=== PATIENT | male | born 1955 | race Hispanic/Latino ===

== ENCOUNTER → 2021-02-26 | Outpatient (CLI) | payer OTHER ==
[~2021-02-26] MED LIST: ALBUMIN (HUMAN) 25% 200 ML IV SCH; Aspirin PO; CEPH500B PO; TRAM50TA4 PO; TYL3 PO
[2021-02-26 11:37] LABS: BASOPHILS % (AUTO) 0.6 % (0.0-5.0); EOSINOPHILS % (AUTO) 2.4 % (0.0-8.0); HEMATOCRIT 41.9 % (42-54); LYMPHOCYTES % (AUTO) 23.7 % (21.0-51.0); MEAN CORPUSCULAR HEMOGLOBIN 36.5 pg (27.0-33.0); MEAN CORPUSCULAR HGB CONC 35.8 g/dL (32.0-36.0); MEAN CORPUSCULAR VOLUME 101.9 fL (79-99); MONOCYTES % (AUTO) 10.7 % (3.0-13.0); NEUTROPHILS % (AUTO) 62.3 % (40.0-77.0); PLATELET COUNT (AUTO) 196 K/uL (130-400); RED BLOOD CELL COUNT(AUTO) 4.11 MIL/uL (4.50-6.20); WHITE BLOOD COUNT (AUTO) 7.9 K/uL (4.8-10.8)
[2021-02-26 11:54] LABS: INR 1.21 (0.85-1.15)
[2021-02-26 12:01] LABS: ALBUMIN 2.5 g/dL (3.5-5.0); BILIRUBIN,TOTAL 4.2 mg/dL (0.2-1.0); CREATININE 0.7 mg/dL (0.5-1.5); POTASSIUM 3.7 mmol/L (3.5-5.1); TOTAL PROTEIN, SERUM 6.5 g/dL (6.0-8.3)
[2021-02-26 13:59] LABS: APPEARANCE BODY FLUID CLOUDY (CLEAR); COLOR,BODY FLUID YELLOW (LT YELLOW); SPECIMENTYPE,BODY FLUID ASCITES; TOTAL VOLUME,BODY FLUID 2800 mL
[2021-02-26 14:00] LABS: BODY FLUID RBC 127 /cu. mm.; BODY FLUID WBC 358 /cu. mm.
[2021-02-26 14:14] LABS: BF LYMPHOCYTE 63 %; BF MONOCYTE 14 %
== END | disposition home or self-care (01) ==
LOC: RAH 10:01
PROVIDERS: ATTEND Internal Medicine Gastroenterology
DX: K70.31 Alcoholic cirrhosis of liver with ascites (principal)
CPT/HCPCS: 36415; 49083; 80053; 82042; 84157; 85025; 85610; 87071; 87205; 89051; A4215; P9046

== ENCOUNTER → 2021-03-28 | Outpatient (CLI) | payer OTHER ==
[~2021-03-28] MED LIST changes: -ALBUMIN (HUMAN) 25% 200 ML IV SCH
== END | disposition home or self-care (01) ==
LOC: RAH 08:50
PROVIDERS: ATTEND Internal Medicine Gastroenterology
DX: K70.31 Alcoholic cirrhosis of liver with ascites (principal)
CPT/HCPCS: 76700; 93975

== ENCOUNTER 2021-08-29 11:15 | Emergency (ER) | payer OTHER ==
[~2021-08-29] VITALS: Ht 167.6 cm; Wt 67.6 kg
[2021-08-29] MEDS ORDERED: FURO20TA4 PO (11:40)
[2021-08-29] MEDS ORDERED: PANT40TA54 PO (11:40)
[2021-08-29] MEDS ORDERED: SPIR50TA5 PO (11:40)
[2021-08-29 12:30] LABS: EOSINOPHILS % (AUTO) 11.1 % (0.0-8.0); LYMPHOCYTES % (AUTO) 35.3 % (21.0-51.0); MEAN CORPUSCULAR HEMOGLOBIN 33.3 pg (27.0-33.0); MEAN CORPUSCULAR HGB CONC 35.2 g/dL (32.0-36.0); MEAN CORPUSCULAR VOLUME 94.6 fL (79-99); MONOCYTES % (AUTO) 10.4 % (3.0-13.0); PLATELET COUNT (AUTO) 151 K/uL (130-400); RED BLOOD CELL COUNT(AUTO) 4.65 MIL/uL (4.50-6.20); RED CELL DISTRIBUTION WIDTH 13.2 % (11.0-15.5); WHITE BLOOD COUNT (AUTO) 5.2 K/uL (4.8-10.8)
[2021-08-29 12:46] LABS: CREATININE 0.8 mg/dL (0.5-1.5); POTASSIUM 3.9 mmol/L (3.5-5.1)
[2021-08-29 12:50] LABS: ALBUMIN 3.5 g/dL (3.5-5.0); BILIRUBIN,TOTAL 1.5 mg/dL (0.2-1.0); MAGNESIUM 1.8 mg/dL (1.80-2.40); TOTAL PROTEIN, SERUM 7.5 g/dL (6.0-8.3)
[2021-08-29 13:45] VITALS: BP 152/65
== END 2021-08-29 14:05 | disposition home or self-care (01) ==
LOC: EDH 11:15
DX: M54.12 Radiculopathy, cervical region (principal); Z79.82 Long term (current) use of aspirin; Z79.899 Other long term (current) drug therapy
CPT/HCPCS: 36415; 70450; 72125; 80053; 83735; 84484; 85025; 93005

== ENCOUNTER 2022-09-30 17:33 | Emergency (ER) | payer OTHER ==
[~2022-09-30] VITALS: Ht 167.6 cm; Wt 75.3 kg
[~2022-09-30 17:33] MED LIST changes: -Aspirin PO; -CEPH500B PO; +FURO20TA4 PO; +PANT40TA54 PO; +SPIR50TA5 PO; -TRAM50TA4 PO; -TYL3 PO
[2022-09-30 17:55] LABS: BASOPHILS % (AUTO) 0.9 % (0.0-5.0); EOSINOPHILS % (AUTO) 9.1 % (0.0-8.0); HEMATOCRIT 43.4 % (42-54); MEAN CORPUSCULAR HEMOGLOBIN 34.4 pg (27.0-33.0); MEAN CORPUSCULAR HGB CONC 35.7 g/dL (32.0-36.0); MEAN CORPUSCULAR VOLUME 96.4 fL (79-99); MONOCYTES % (AUTO) 7.8 % (3.0-13.0); NEUTROPHILS % (AUTO) 44.9 % (40.0-77.0); PLATELET COUNT (AUTO) 151 K/uL (130-400); RED CELL DISTRIBUTION WIDTH 12.6 % (11.0-15.5); WHITE BLOOD COUNT (AUTO) 6.7 K/uL (4.8-10.8)
[2022-09-30] MEDS ORDERED: DiphenhydrAMINE HCL 50 MG/ML VIAL IV ONE (18:00)
[2022-09-30] MEDS ORDERED: 0.9%NACL 1000ML 1,000 ML IV ONE (18:00)
[2022-09-30] MEDS ORDERED: PROCHLORPERAZINE 10MG/2ML INJ IV ONE (18:00)
[2022-09-30] MEDS ORDERED: FAMOTIDINE 20MG VIAL IV ONE (18:00)
[2022-09-30 18:09] LABS: CREATININE 0.8 mg/dL (0.5-1.5); POTASSIUM 3.8 mmol/L (3.5-5.1)
[2022-09-30 18:13] LABS: ALBUMIN 3.9 g/dL (3.5-5.0)
[2022-09-30] MEDS ORDERED: PROC5TAB54 PO (19:09)
[2022-09-30] MEDS ORDERED: FAMO-136 PO (19:09)
[2022-09-30 19:44] VITALS: BP 156/74
== END 2022-09-30 19:57 | disposition home or self-care (01) ==
LOC: EDH 17:33
DX: K52.9 Noninfective gastroenteritis and colitis, unspecified (principal); E86.0 Dehydration
CPT/HCPCS: 99284; 84484; 80053; 85025; 36415; 96374; 96361; 96375; J1200; J3490; J7030; J0780

== ENCOUNTER → 2023-01-26 | Outpatient (CLI) | payer OTHER ==
[~2023-01-26] MED LIST changes: +FAMO-136 PO; +PROC5TAB54 PO
== END | disposition home or self-care (01) ==
LOC: RAH 08:36
PROVIDERS: ATTEND Internal Medicine Gastroenterology
DX: K70.31 Alcoholic cirrhosis of liver with ascites (principal)
CPT/HCPCS: 76700; 93975